=== PATIENT | female | born 2005 | race Caucasian/White ===

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

== ENCOUNTER 2025-03-31 07:44 | Emergency (ER) | payer OTHER, SELFPAY ==
--- OUTSIDE RECORDS SUMMARY | 2023-10-08 08:50 | XMS_ITS ---
Author Organization BILLING FACILITY [email or web address] [facility] Address [facility] [address] [place] [address] Care Team Providers Care Shipper Receiver Name Role Phone Rolanda Hyde Primary Care Provider Encounters Encounter Location Date Provider Diagnosis [address] [address] 10/08/2023 Rolanda Hyde PLAN OF TREATMENT No Information Progress Notes * Zaheer SALGUEROOB:2005 (18 yo F)Acc No.[id number]:10/08/2023 Patient: Hortencia SALGUERO :2005 Age:18 Y Sex:Female [facility] [place] [address] * true * Date:
--- OUTSIDE RECORDS SUMMARY | 2023-10-10 07:04 | XMS_ITS ---
Author Organization BILLING FACILITY [employer] [facility] Address PO [facility] [address] [place] [address] Care Team Providers Care Material Control Associate Name Role Phone Rolanda Hyde Primary Care Provider REASON FOR VISIT Referral F/U Encounters Encounter Location Date Provider Diagnosis [address] [address] 10/10/2023 Rolanda Hyde PLAN OF TREATMENT No Information Progress Notes * Zaheer SALGUEROOB:2005 (18 yo F)Acc No.[id number]:10/10/2023 Patient: Hortencia SALGUERO :2005 Age:18 Y Sex:Female Address:[facility] [address] , [place] [address] * true * Date:
--- OUTSIDE RECORDS SUMMARY | 2023-10-13 04:00 | XMS_ITS ---
Author Organization BILLING FACILITY [employer] [facility] Address [facility] [address] [place] [address] Care Team Providers Care Hearing Impaired Itinerant Teacher Name Role Phone Rolanda Hyde Primary Care Provider [phone] REASON FOR VISIT F/U abdominal pain, imaging Encounters Encounter Location Date Provider Diagnosis [facility] [address] [place] [phone] 10/13/2023 Rolanda Hyde PLAN OF TREATMENT No Information Progress Notes * Bhargav SALGUERONasOB:2005 (20 yo F)Acc No.[id number]:10/13/2023 Patient: Hortencia SALGUERO Provider: Rolanda Hyde APRN :2005 Age:18 Y Sex:Female Date:10/13/2023 [facility] Subjective: * Chief Complaints: * 1. F/U abdominal pain, imaging. * Medical History: Objective: Assessment: Plan: * Treatment: * Billing Information: * Visit Code: * Procedure Codes: * The named appointment provid er may or may not be the originator of this progress note, and it is not deemed complete until electronically signed by the appointment provider. Sign off status: Pending * Provider: Rolanda Hyde APRN Date: 10/13/2023
--- OUTSIDE RECORDS SUMMARY | 2023-10-13 09:00 | XMS_ITS ---
Author Organization BILLING FACILITY [employer] [facility] Address [facility] [address] [place] [address] Care Team Providers Care Tassel Clipper Name Role Phone Rolanda Hyde Primary Care Provider REASON FOR VISIT Other Encounters Encounter Location Date Provider Diagnosis [facility] [address] [place] [address] 10/13/2023 Rolanda Hyde PLAN OF TREATMENT No Information Progress Notes * Bhargav SALGUERONasOB:2005 (20 yo F)Acc No.[id number]:10/13/2023 Patient: Hortencia SALGUERO Provider: Rolanda Hyde APRN :2005 Age:18 Y Sex:Female Date:10/13/2023 Address:[facility] [address] , [facility] Subjective: * Chief Complaints: * 1. Other. * Medical History: Objective: Assessment: Plan: * [...]
--- OUTSIDE RECORDS SUMMARY | 2023-10-21 03:20 | XMS_ITS ---
Author Organization BILLING FACILITY [employer] Address [address] [facility] [address] [place] [address] Care Team Providers Care Customer Service Teller Name Role Phone Rolanda Hyde Primary Care Provider ALLERGIES Allergen (clinical drug ingredient) Drug/Non Drug Allergy documented on EMR Reaction Allergy Type Onset Date Status Omnicef rash Drug Allergy Active Penicillin rash Drug Allergy Active REASON FOR VISIT update, BSV - TELEPHONE ENCOUNTER MEDICATIONS Medication SIG (Take, Route, Frequency, Duration) Notes Start Date End Date Status Pantoprazole Sodium 20 MG 1 tablet Orall y daily in AM for 30 days Active VITAL SIGNS Height 61 in 10/21/2023 TELEPHONE ENCOUNTER Encounters Encounter Location Date Provider Diagnosis [address] [address] 10/21/2023 Rolanda Hyde Epigastric abdominal pain R10.13 and GERD (gastroesophageal reflux disease) K21.9 ASSESSMENTS Encounter Date Diagnosis Assessment Notes Treatment Notes Treatment Clinical Notes Section Notes 10/21/2023 Epigastric abdominal pain (ICD-10 - R10.13) Pt will keep GI appt as scheduled on 11/03/23 with Monik Gilbert NP. She DC'd Nexium as instructed and started Protonix. Pt is doing well w/Protonix with reportedly much improved ssx. Discussed P2P conclusion and advised her to complete labs. Pt will discuss labs with mother to determine when she can complete this before their vacation. Once labs are completed and reviewed she will take results to GI for further consideration on EGD vs imaging such as US or CT. Ordered RF Protonix, pt aware to fill at local pharmacy. Pt voiced understanding and agreement with POC as discussed. All questions and concerns were addressed to pt satisfaction. 10/21/2023 GERD (gastroesophage al reflux disease) (ICD-10 - K21.9) As above. PLAN OF TREATMENT Medication Medication Name Sig Start Date Stop Date Notes Pantoprazole Sodium 20 MG 1 tablet Orall y daily in AM for 30 days Next Appt Details Follow Up: prn, Reason: Progress Notes * Zaheer SALGUEROOB:2005 (18 yo F)Acc No.[id number]:10/21/2023 Patient: Hortencia SALGUERO Provider: Rolanda yHde APRN :2005 Age:18 Y Sex:Female Date:10/21/2023 Address:[address] [place] [address] Subjective: * Chief Complaints: * UpdateBSV - TELEPHONE ENCOUNTER * HPI: *: Pt presents via TELEPHONE ENCOUNTER for F/U abdominal pain. C all placed to pt at: 0915. C all ended at: 0923. Daina nance reports DC'd Nexium, started Protonix as Rx'd. S tates she is feeling much better with Protonix - hasn't noticed any reflux, heartburn, nausea, or vomiting since taking this med. Still does have abdominal pain, but it seems less often. Pt doesn't feel severity of abdominal pain has changed, though. She denies constipation, diarrhea, appetite change, fatigue, and fever. P goyo has scheduled with GI for 11/02 seeing Monik Gilbert NP. S he will be out of town 10/22-. T his encounter was undertaken via [telephone]. I introduced myself as SHELIA Michelle, and greeted the patient by name and then verified their location [home]. We reviewed the appropriateness of virtual care for this visit and the limitations of telemedicine. All issues below were discussed and addressed but no physical exam was performed except as documented. If it was felt the patient should be evaluated [id number], they were directed to the clinic for care either now or at a subsequent visit as indicated below. Verbal consent for telemedicine visit obtained from the patient. * ROS: General/Constitutional: General Denies:, chills, fatigue, fever, weight changes. Cardiovascular DENIES: , chest pain or tightness, irregular heartbeat, palpitations. Respiratory DENIES: , cough, shortness of breath, wheezing. Gastrointestinal REPORTS: PAIN IN UPPER MIDDLE AND UPPER LEFT ABD AREAS. SEE HPI FOR _update ON GERD, NAUSEA. DENIES: constipation, diarrhea, vomiting, bloating. Genitourinary DENIES: , dysuria, polyuria. Neurologic DENIES: , dizziness, headache, weakness. * Medical History: * Surgical History: * Hospitalization/Major Diagno stic Procedure: * Medications: TakingPantoprazole Sodium 20 MG Tablet Delayed Release 1 tablet Orally daily in AM Taking Pantoprazole Sodium 20 MG Tablet Delayed Release 1 tablet Orally daily in AM * Allergies: Penicillin: rash - Allergy - Criticality HighOmnicef: rash - Allergy - Criticality Highno[Allergies Verified] Objective: * Vitals: Ht:61in, Ht %: 10.09 % TELEPHONE ENCOUNTER. * Examination: General Examination *: TELEPHONE ENCOUNTER. Assessment: * Assessment: 1. Epigastric abdominal pain - R10.13 (Primary) 2. GERD (gastroesophageal reflux disease) - K21.9 Plan: * Treatment: 2. GERD (gastroesophageal reflux disease) Clinical Notes: As above. * Procedure Codes: * Follow Up: prn * Billing Information: * Visit Code: 69308 PHN E/M by PHYS 11-20 MIN. * Procedure Codes: * Sign off status: Completed true * Provider: Rolanda Hyde APRN Date: 10/21/2023 History and Physical Notes * Examination Category Sub-Category Detail Notes Category Not es General Examination * TELEPH ONE ENCOUNTER
--- OUTSIDE RECORDS SUMMARY | 2023-10-21 05:15 | XMS_ITS ---
Author Organization BILLING FACILITY [email or web address] [facility] Address [facility] [address] [place] [address] Care Team Providers Care Test Design Engineer Name Role Phone Rolanda Hyde Primary Care Provider RESULTS Component Value Reference Range Notes Hepatic Function Panel (7) ( LFTs) (516271) Reviewed date:10/23/2023 07:38:49 AM Interpretation:Normal Performing Lab:[facility] [id number], Phone - [phone], Director - PhDNashoba Valley Medical Centerclemenciai Notes/Report: Protein, Total 7.5 6.0-8.5 g/dL Albumin 4.9 4.0-5.0 g/dL Bilirubin, Total 0.7 0.0-1.2 mg/dL Bilirubin, Direct 0.19 0.00-0.40 mg/dL Alkaline Phosphatase 62 42-106 IU/L AST (SGOT) 22 0-40 IU/L ALT (SGPT) 24 0-32 IU/L Lipase, Serum ([id number]) Reviewed date:10/23/2023 07:38:49 AM Interpretation:Normal Performing Lab:[facility] [id number], Phone - [phone], Director - PhDRicbluegrass community hospitaluti Notes/Report: Lipase 23 14-72 U/L Amylase, Serum([id number]) Reviewed date:10/23/2023 07:38:49 AM Interpretation:Normal Performing Lab:Lab[address] [id number], Phone - [phone], Director - PhDRicbluegrass community hospitaluti Notes/Report: Amylase 52 31-110 U/L UA Urinalysis w/Microscopic w/rflx Culture, Routine (up to 2 organisms) ([id number]) Reviewed date:10/23/2023 07:38:49 AM Interpretation:Normal Performing Lab:[facility], [place], [place] [id number], Phone - [phone], Director - [place] Notes/Report: Specific [place] 1.017 1.005-1.030 pH 6.5 5.0-7.5 Urine-Color Yellow Yellow Appearance Clear Clear WBC Esterase Negative Negative Protein Negative Negative/Trace Glucose Negative Negative Ketones Negative Negative Occult Blood Negative Negative Bilirubin Negative Negative Urobilinogen,Semi-Qn 0.2 0.2-1.0 mg/dL Nitrite, Urine Negative Negative Microscopic Examination Micr oscopic follows if indicated. Microscopic Examination See below: Micr oscopic was indicated and was performed. Urinalysis Reflex This speci men will not reflex to a Urine Culture. WBC None seen 0 - 5 /hpf RBC None seen 0 - 2 /hpf Epithelial Cells (non renal) 0-10 0 - 10 /hpf Epithelial Cells (renal) Casts None seen None seen /lpf Cast Type Crystals Crystal Type Mucus Threads Bacteria None seen None seen/Few Yeast Trichomonas Comment Basic Metabolic Profile (8) ([facility])([id number]) Reviewed date:10/23/2023 07:38:50 AM Interpretation:Normal Performing Lab:[facility], [address] [place], [place] [id number], Phone - [phone], Director - [place] Notes/Report: Glucose 83 70-99 mg/dL BUN 11 6-20 mg/dL Creatinine 0.83 0.57-1.00 mg/dL eGFR 105 >59 mL/min/1.73 BUN/Creatinine Ratio 13 9-23 Sodium 140 134-144 mmol/L Potassium 4.1 3.5-5.2 mmol/L Chloride 102 96-106 mmol/L Carbon Dioxide, Total 22 20-29 mmol/L Calcium 10.2 8.7-10.2 mg/dL REASON FOR VISIT New labs, Lab draw MEDICATIONS Medication SIG (Take, Route, Frequency, Duration) Notes Start Date End Date Status Pantoprazole Sodium 20 MG 1 tablet Orall y daily in AM for 30 days Active Encounters Encounter Location Date Provider Diagnosis [address] [address] 10/21/2023 Rolanda Hyde Epigastric abdominal pain R10.13 and Laboratory test Z01.89 ASSESSMENTS Encounter Date Diagnosis Assessment Notes Treatment Notes Treatment Clinical Notes Section Notes 10/21/2023 Epigastric abdominal pain (ICD-10 - R10.13) 10/21/2023 Laboratory test (ICD-10 - Z01.89) PLAN OF TREATMENT No Information Procedure Notes * Category Sub-Category Detail Notes Venipuncture Venipuncture: Procedure Explai haile, Standard Precautions Used, verbal consent obtained, Pt Position, sitting, 21 g butterfly, LT AC Space, # of Attempts 1, , Successful, No Redness/Swelling at Site, Pt Tolerated Well, Pressure and Clean Bandage Applied. BVoyda, DIE FINISHER FORGING-C1SST; 1 LAV; 2 Murrell top, 1 Goss Speckled, 1 urine cup Progress Notes * Bhargav SALGUEROwandynDOB:2005 (18 yo F)Acc No.[id number]:10/21/2023 Patient: Hortencia SALGUERO Provider: Rolanda Hyde APRN :2005 Age:18 Y Sex:Female Date:10/21/2023 Address:[address] [place] [address] Subjective: * Chief Complaints: * New labsLab draw * Medical History: * Surgical History: * Hospitalization/Major Diagno stic Procedure: * Medications: TakingPantoprazole Sodium 20 MG Tablet Delayed Release 1 tablet Orally daily in AM Taking Pantoprazole Sodium 20 MG Tablet Delayed Release 1 tablet Orally daily in AM Objective: Assessment: * Assessment: 1. Laboratory test - Z01.89 (Primary) 2. Epigastric abdominal pain - R10.13 Plan: * Treatment: Value Reference Range Albumin, Serum 4.9 4.0-5.0 - g/dL * Alkaline Phosphatase, S 62 42-106 - IU/L * ALT (SGPT) 24 0-32 - IU/L * AST (SGOT) 22 0-40 - IU/L * Bilirubin, Direct 0.19 0.00-0.40 - mg/dL * Bilirubin, Total 0.7 0.0-1.2 - mg/dL * Protein, Total, Serum 7.5 6.0-8.5 - g/dL * This lab was reviewed by Teresita Hyde on 10/23/2023 at 07:38 AM MDT ?LAB: Lipase, Serum ([id number])* Value Reference Range Lipase, Serum 23 14-72 - U/L * This lab was reviewed by Teresita Hyde on 10/23/2023 at 07:38 AM T ?LAB: Amylase, Serum([id number])* Value Reference Range Amylase, Serum 52 31-110 - U/L * This lab was reviewed by Teresita Hyde on 10/23/2023 at 07:38 AM MDT ?LAB: UA Urinalysis w/Microscopic w/rflx Culture, Routine (up to 2 organisms) ([id number])* Value Reference Range Bacteria None seen None seen/Few - * Casts None seen None seen - /lpf * Epithelial Cells (non renal) 0-10 0 - 10 - /h pf * RBC None seen 0 - 2 - /hpf * WBC None seen 0 - 5 - /hpf * Appearance Clear Clear - * Bilirubin Negative Negative - * Glucose Negative Negative - * Ketones Negative Negative - * Microscopic Examination See below: - * Nitrite, Urine Negative Negative - * Occult Blood Negative Negative - * pH 6.5 5.0-7.5 - * Protein Negative Negative/Trace - * Specific [place] 1.017 1.005-1.030 - * Urine-Color Yellow Yellow - * Urobilinogen,Semi-Qn 0.2 0.2-1.0 - mg/dL * WBC Esterase Negative Negative - * This lab was reviewed by Teresita Hyde on 10/23/2023 at 07:38 AM T ?LAB: Basic Metabolic Profile (8) ([facility])([id number])* Value Reference Range Glucose, Serum 83 70-99 - mg/dL * BUN 11 6-20 - mg/dL * Creatinine, Serum 0.83 0.57-1.00 - mg/dL * BUN/Creatinine Ratio 13 9-23 - * Sodium, Serum 140 134-144 - mmol/L * Potassium, Serum 4.1 3.5-5.2 - mmol/L * Chloride, Serum 102 96-106 - mmol/L * Carbon Dioxide, Total 22 20-29 - mmol/L * Calcium, Serum 10.2 8.7-10.2 - mg/dL * eGFR 105 >59 - mL/min/1.73 * This lab was reviewed by Teresita Hyde on 10/23/2023 at 07:38 AM MDT * Procedures: Venipuncture: Venipuncture: Procedure Explained, Standard Precautions Used, verbal consent obtained, Pt Position, sitting, 21 g butterfly, LT AC Space, # of Attempts 1, , Successful, No Redness/Swelling at Site, Pt Tolerated Well, Pressure and Clean Bandage Applied. BVWARREN larson 1SST; 1 LAV; 2 Murrell top, 1 Goss Speckled, 1 urine cup. * Procedure Codes: 30142 VENIPUNCT, ROUTINE* * Billing Information: * Visit Code: * Procedure Codes: 14390 VENIPUNCT, ROUTINE*. * NN Sign off status: Completed true * Provider: Rolanda Hyde APRN Date: 10/21/2023
--- OUTSIDE RECORDS SUMMARY | 2023-11-25 03:51 | XMS_ITS ---
Author Organization BILLING FACILITY [employer] [facility] Address PO [facility] [address] [place] [address] Care Team Providers Care Holistic Specialist Name Role Phone Rolanda Hyde Primary Care Provider REASON FOR VISIT PRTL: Chest pain Encounters Encounter Location Date Provider Diagnosis [address] [address] 11/25/2023 Rolanda Hyde PLAN OF TREATMENT No Information Progress Notes * Bhargav SALGUERONasOB:2005 (18 yo F)Acc No.[id number]:11/25/2023 Patient: Hortencia SALGUERO :2005 Age:18 Y Sex:Female Address:[facility] [place] [id number] Subjective: * Chief Complaints: * PRTL: Chest pain * Medical History: * Surgical History: * Hospitalization/Major Diagno stic Procedure: * Medications: Objective: Assessment: Plan: * Treatment: * Procedure Codes: * true * Date:
--- OUTSIDE RECORDS SUMMARY | 2023-11-25 04:30 | XMS_ITS ---
Author Organization BILLING FACILITY [employer] Address PO [facility] [address] [place] [address] Care Team Providers Care Pharmacist Apprentice Name Role Phone Rolanda Hyde Primary Care Provider ALLERGIES Allergen (clinical drug ingredient) Drug/Non Drug Allergy documented on EMR Reaction Allergy Type Onset Date Status Omnicef rash Drug Allergy Active Penicillin rash Drug Allergy Active REASON FOR VISIT F/U GI pain, f/u EGD results MEDICATIONS Medication SIG (Take, Route, Frequency, Duration) Notes Start Date End Date Status Pantoprazole Sodium 20 MG 1 tablet Orall y daily in AM for 90 days Active VITAL SIGNS Height 61 in 11/25/2023 TELEPHONE ENCOUNTER Encounters Encounter Location Date Provider Diagnosis [address] [address] 11/25/2023 Rolanda Rabagovaleryjoshua Epigastric abdominal pain R10.13 and GERD (gastroesophageal reflux disease) K21.9 ASSESSMENTS Encounter Date Diagnosis Assessment Notes Treatment Notes Treatment Clinical Notes Section Notes 11/25/2023 Epigastric abdominal pain (ICD-10 - R10.13) Describes continued pain triggered especially with core exercises. She specifically avoids that muscle group when working out near daily at the gym as it will cause significant pain the remainder of the day. Encouraged pt to contact her GI to relay above and discuss next steps in workup given persistent pain and WNL EGD. She has their contact information. Pt verbalized understanding and agreement with POC. She will keep us updated. 11/25/2023 GERD (gastroesophage al reflux disease) (ICD-10 - K21.9) Pt reports ssx reflux well controlled w/protonix. She has about 1 week of pills left, RF ordered. PLAN OF TREATMENT Medication Medication Name Sig Start Date Stop Date Notes Pantoprazole Sodium 20 MG 1 tablet Orall y daily in AM for 90 days Progress Notes * Zaheer SALGUEROOB:2005 (18 yo F)Acc No.[id number]:11/25/2023 Patient: Hortencia SALGUERO Provider: Rolanda Hyde APRN :2005 Age:18 Y Sex:Female Date:11/25/2023 Address:[address] [place] [address] Subjective: * Chief Complaints: * F/U GI pain, f/u EGD results * HPI: *: Pt presents via TELEPHONE ENCOUNTER for F/U abdominal pain. C all placed to pt at: 10:30. C all ended at: 10:39. E GD COMPLETED - WNL. N o f/u appts with GI. N o change w/food amount or types. B loated a lot, denies fever, constipation, diarrhea. P ain worse w/exercise, especially core work. C ontinues Protonix, acid reflux still under control. T his encounter was undertaken via [telephone]. [...] was felt the patient should be evaluated [id number], they were directed to the clinic for [...] UPPER MIDDLE AND UPPER LEFT ABD AREAS. FREQUENT BLOATING. SEE HPI. DENIES: constipation, diarrhea, vomiting. Genitourinary DENIES: , dysuria, polyuria. Neurologic DENIES: [...] Criticality HighOmnicef: rash - Allergy - Criticality High Objective: * Vitals: Ht:61in, Ht %: 10.07 % TELEPHONE ENCOUNTER. * Examination: General Examination *: TELEPHONE ENCOUNTER. Assessment: * Assessment: 1. Epigastric abdominal pain - R10.13 (Primary) 2. GERD (gastroesophageal reflux disease) - K21.9 Plan: * Treatment: 2. GERD (gastroesophageal reflux disease) Refill Pantoprazole Sodium Tablet Delayed Release, 20 MG, 1 tablet, Orally, daily in AM, 90 days, 90 Tablet, Refills 0. Clinical Notes: Pt reports ssx reflux well controlled w/protonix. She has about 1 week of pills left, RF ordered. * Procedure Codes: * Billing Information: * Visit Code: 33650 PHN E/M by PHYS 11-20 MIN. * Procedure Codes: * Sign off status: Completed true * Provider: Rolanda Hyde APRN Date: 11/25/2023 History and Physical Notes * Examination Category Sub-Category Detail Notes Category Not es General Examination * TELEPH ONE ENCOUNTER
--- OUTSIDE RECORDS SUMMARY | 2024-02-23 04:00 | XMS_ITS ---
Author Organization [facility] [employer] [facility] Address [address] [place] [address] Care Team Providers Care Entry Level Programmer Name Role Phone Rolanda Hyde Primary Care Provider [phone] ALLERGIES Allergen (clinical drug ingredient) Drug/Non Drug Allergy documented on EMR Reaction Allergy Type Onset Date Status Omnicef rash Drug Allergy Active Penicillin rash Drug Allergy Active REASON FOR REFERRAL Reason left renal stones Diagnosis 1 Renal stone (N20.0) Referral Organization [facility] Referring Provider First Name Rolanda Referring Provider Last Name Mary Ellen Referring Provider Speciality Family Med icine Referred Provider Moises [facility] Nep [facility] Referred Provider Specialty Nephrology Referral Priority Routine REASON FOR VISIT CPE, labs, kidney stones MEDICATIONS Medication SIG (Take, Route, Frequency, Duration) Notes Start Date End Date Status Pantoprazole Sodium 20 MG 1 tablet Orally daily in AM for 90 days Active Nexplanon 68 MG as directed Subcutaneous PAINTER APPRENTICE Dr. Adriana Nathan Active SOCIAL HISTORY Tobacco Use: Social History Observation Description Date Details (start date - stop date) Never Smoker NA - NA Sex Assigned At : Social History Observation Description Sex Assigned At Unknown Tobacco Use/Smoking Question Answer Notes Are you a nonuser Alcohol Questionnaire Question Answer Notes Did you have a drink contain ing alcohol in the past year? Yes How often did you have a dri nk containing alcohol in the past year? Monthly or less (1 point) How many drinks did you have on a typical day when you were drinking in the past year? 3 or 4 drinks (1 point) How often did you have 6 or more drinks on one occasion in the past year? Never (0 point) Points 2 Interpretation Negative PROBLEMS Problem Type ICD Code Onset Dates Problem Status W/U Status Risk SNOMED Code Notes Problem Childhood asthma (J45.909) Active confirmed Childhood asthma (891856392) VITAL SIGNS Temperature 99.7 degrees Fahrenheit 02/23/20 Heart Rate 90 /min 02/23/2024 Oximetry 99 % 02/23/2024 Blood pressure systolic 118 mm Hg 02/23/20 24 Blood pressure diastolic 68 mm Hg 024 Respiratory Rate 16 /min 02/23/2024 Weight 120.3 lbs 02/23/2024 Height 61 in 02/23/2024 BMI 22.73 02/23/2024 Weight-kg 54.57 kg 02/23/2024 BMI Percentile 63.29 % 02/23/2024 Encounters Encounter Location Date Provider Diagnosis [address] [address] 02/23/2024 Rolanda Hyde Encounter for genera l adult medical examination with abnormal findings Z00.01 ; Renal stone N20.0 and Anxiety F41.9 ASSESSMENTS Encounter Date Diagnosis Assessment Notes Treatment Notes Treatment Clinical Notes Section Notes 02/23/2024 Encounter for general adult medical examination with abnormal findings (ICD-10 - Z00.01) Labs: Reviewed available results from 10/2023 visit and discussed screening for HLD and thyroid conditions. Pt declines testing today, but is aware she can call to schedule if she opts back into this. Vaccines: Declines flu vaccine. Reports UTD tdap. Encouraged good sleep hygiene for good sleep quality, daily exercise, good nutrition, healthy relationships, etc. 02/23/2024 Renal stone (ICD-10 - N20.0) Reviewed CT imaging results with pt, recommend she see nephrology as she was found to have left renal stones and is still symptomatic. Discussed UTI ssx and concerns for infection. She is agreeable to referral as discussed. Pt will call for any change in condition or need for additional care. 02/23/2024 Anxiety (ICD-10 - F41.9) KYLIE 12, moderate. Pt taking ashwagandha OTC QAM to help reduce anxiety, sometimes also at bedtime if she feels stress will disrupt her sleep. Encouraged sleep hygiene for good sleep quality, daily exercise, good nutrition, healthy relationships, etc. Discussed [facility] therapy, however she declines interest in referral or pharmocologic treatment at this time. Pt will call for change in consideration or change in condition. Pt voiced understanding and agreement with POC as discussed. All questions and concerns were addressed to pt satisfaction. PLAN OF TREATMENT Referrals Referral Date Details left renal jesse , Moises [facility] Nephrology Progress Notes * Zaheer SALGUEROOB:2005 (19 yo F)Acc No.[id number]:02/23/2024 Patient: Hortencia SALGUERO Provider: Rolanda Hyde APRN :2005 Age:19 Y Sex:Female Date:02/23/2024 Address:[address] [place] [address] Subjective: * Chief Complaints: * CPE, labs, kidney stones * HPI: Depression/Anxiety Screening: PHQ-9 (If PHQ-2 positive) Little interest or pleasure in doing things Not at all Feeling down, depressed, or hopeless Not at all Trouble falling or staying asleep, or sleeping too much Several days Feeling tired or having little energy Several days Poor appetite or overeating Several days Feeling bad about yourself or that you are a failure, or have let yourself or your family down Not at all Trouble concentrating on things, such as reading the newspaper or watching television Several days Moving or speaking so slowly that other people could have noticed; or the opposite, being so fidgety or restless that you have been moving around a lot more than usual Not at all Thoughts that you would be better off or of hurting yourself in some way Not at all Total Score 4 Interpretation Minimal Depression Depression Screening: KYLIE-7 (2018 Edition) Feeling nervous, anxious, or on edge Nearly every day Not being able to stop or control worrying Nearly every day Worrying too much about different things Nearly every day Trouble relaxing Several days Being so restless that it is hard to sit still Not at all Becoming easily annoyed or irritable Several days Feeling afraid as if something awful might happen Several days Total KYLIE-7 Score 12 If you checked any problems, how difficult have they made it for you to do your work, take care of things at home, or get along with other people? Somewhat difficult Interpretation of Total (10 to 14) Moderate *: Pt presents with boyfriend for CPE and with c/o kidney stones. P t verbalizes she is comfortable with boyfriend's presence during all of today's visit. S aw GI, had imaging done which showed non-obstructing kidney stones. P t reports they attribute GI pain to these renal stones. * ROS: General/Constitutional: General Denies:, chills, fatigue, fever, weight changes. Eyes Denies:, blurred vision. ENT DENIES: , ear(s) pain, hearing decreased, nose congestion/drainage. Cardiovascular DENIES: , chest pain or tightness, irregular heartbeat, palpitations. Respiratory DENIES: , cough, shortness of breath, wheezing. Gastrointestinal REPORTS: PAIN IN UPPER MIDDLE AND UPPER LEFT ABD AREAS. FREQUENT BLOATING. DENIES: constipation, diarrhea, vomiting. Genitourinary REPORTS: LEFT BACK PAIN. DENIES: , dysuria, polyuria. Skin DENIES: , concerning/changing lesions, itching, rash. Musculoskeletal DENIES: , back pain, muscle aches. Peripheral Vascular DENIES: , claudication, varicose veins. Neurologic DENIES: , dizziness, headache, weakness. Psychiatric DENIES:, anxiety, depressed mood, sleep problems, substance abuse, suicidal thoughts. Endocrine DENIES: , cold intolerance, heat intolerance, polydipsia. Hematology DENIES: , bleeding prolonged, bruising easily, glands swollen. * Medical History: * Qc Chemist History: Periods : Irregular cycle; last one started on 12/27/2023 through 01/09/2024. Date of Last Period 12/27/23. control Implanon (Nexplanon). Menarche: Age of onset of maternal menarche: 13 * OB History: Total pregnancies 0. * Surgical History: No Surgical History documented. * Hospitalization/Major Diagno stic Procedure: GERD management 2010 * Family History: Father: alive. Mother: alive. Maternal G M: alive, Heart Disease. 1 brother(s) - healthy. . Adopted sister. * Social History: Tobacco Use: Tobacco Use/Smoking Are you a nonuser Habits (drugs/alcohol/caffeine): Alcohol Questionnaire Did you have a drink containing alcohol in the past year? Yes How often did you have a drink containing alcohol in the past year? Monthly or less (1 point) How many drinks did you have on a typical day when you were drinking in the past year? 3 or 4 drinks (1 point) How often did you have 6 or more drinks on one occasion in the past year? Never (0 point) Points 2 Interpretation Negative * Medications: TakingNexplanon 68 MG Implant as directed Subcutaneous Pantoprazole Sodium 20 MG Tablet Delayed Release 1 tablet Orally daily in AM Medication List reviewed and reconciled with the patientTaking Nexplanon 68 MG Implant as directed Subcutaneous Taking Pantoprazole Sodium 20 MG Tablet Delayed Release 1 tablet Orally daily in AM Medication List reviewed and reconciled with the patient * Allergies: Penicillin: rash - Allergy - Criticality HighOmnicef: rash - Allergy - Criticality Highno[Allergies Verified] Objective: * Vitals: Temp:99.7F, HR:90, Oxygen sat:99%, BP:118/68mm Hg, RR:16/min, Wt:120.3lbs, Wt Ch.9 lbs, Wt Chg %: 6.08%, Wt %: 37.72 %, Ht:61in, BMI:22.73, Wt-k.57 kg, BMI %: 63.29 %, Ht %: 10 %. * Examination: General Examination *: GENERAL APPEARANCE: alert and oriented, no acute distress, pleasant, well nourished. HEAD: atraumatic, normocephalic. EYES: conjunctiva clear, sclera non-icteric. EARS: auditory canal clear, light reflex present, tympanic membrane intact. SINUSES: non-tender. NOSE: nares patent, no lesions . ORAL CAVITY: no lesions, mucosa moist, normal dentition. THROAT: no erythema, no exudate, pharynx normal, tonsils normal, uvula midline . NECK/THYROID: neck supple, no thyromegaly. LYMPH NODES: no anterior cervical adenopathy. HEART: S1/S2 normal, regular rate and rhythm, no murmurs, no rubs, no gallops. LUNGS: clear to auscultation, good air movement, no respiratory distress. CHEST: anteroposterior (AP) diameter normal, no deformity. ABDOMEN: TTP ACROSS UPPER ABDOMINAL AREA, soft, normal bowel sounds, non-distended, no evidence of hernias. BACK: + COSTOVERTEBRAN ANGLE TENDERNESS TO LEFT, otherwise non-tender, full range of motion. SKIN: Warm and dry, good turgor, no rashes, no suspicious lesions. EXTREMITIES: no edema, capillary refill normal. PERIPHERAL PULSES: 2+ throughout. NEUROLOGIC: alert, cooperative, moving all extremities spontaneously, non-focal, no difficulty with ambulation, CN II-XII intact. Strength 5/5 proximally and distally BUE and BLE. DTRs 2+ at bilateral biceps, brachioradialis, knees and ankles. Normal rapidly alternating movements. Normal finger to nose. Normal tandem gait, Negative Romberg.. MUSCULOSKELETAL: no swelling or deformity. PSYCH: affect normal, cognitive function intact, mood normal, *SPEECH/LANGUAGE, clear. Assessment: * Assessment: 1. Encounter for general adult medical examination with abnormal findings - Z00.01 (Primary) 2. Renal stone - N20.0 3. Anxiety - F41.9 Plan: * Treatment: 2. Renal stone Clinical Notes: Reviewed CT imaging results with pt, recommend she see nephrology as she was found to have left renal stones and is still symptomatic. Discussed UTI ssx and concerns for infection. She is agreeable to referral as discussed. Pt will call for any change in condition or need for additional care. Referral To:Nephrology Reason:left renal stones 3. Anxiety Clinical Notes: KYLIE 12, moderate. Pt taking ashwagandha OTC QAM to help reduce anxiety, sometimes also at bedtime if she feels stress will disrupt her sleep. Encouraged sleep hygiene for good sleep quality, daily exercise, good nutrition, healthy relationships, etc. Discussed [facility] therapy, however she declines interest in referral or pharmocologic treatment at this time. Pt will call for change in consideration or change in condition. Pt voiced understanding and agreement with POC as discussed. All questions and concerns were addressed to pt satisfaction. * Procedure Codes: * Billing Information: * Visit Code: * Procedure Codes: * Sign off status: Completed true * Provider: Rolanda Hyde APRN Date: 02/23/2024 History and Physical Notes * HPI (History of Present Illness) Category Sub-Category Detail Notes Category Not es Depression/Anxiety Screening PHQ-9 (If PHQ-2 positive) Little interest or pleasure in doing things: Not at all Feeling down, depressed, or hopeless: No t at all Trouble falling or staying asleep, or sl eeping too much: Several days Feeling tired or having little energy: S everal days Poor appetite or overeating: Several day s Feeling bad about yourself o r that you are a failure, or have let yourself or your family down: Not at all Trouble concentrating on thi ngs, such as reading the newspaper or watching television: Several days Moving or speaking so slowly that other people could have noticed; or the opposite, being so fidgety or restless that you have been moving around a lot more than usual: Not at all Thoughts that you would be b supa off or of hurting yourself in some way: Not at all Total Score: 4 Interpretation: Minimal Depression Depression Screening KYLIE-7 (2018 Edition) Feelin g nervous, anxious, or on edge: Nearly every day Not being able to stop or control worryi ng: Nearly every day Worrying too much about different things : Nearly every day Trouble relaxing: Several days Being so restless that it is hard to sit still: Not at all Becoming easily annoyed or irritable: Se veral days Feeling afraid as if something awful david ht happen: Several days Total KYLIE-7 Score: 12 If you checked any problems, how difficult have they made it for you to do your work, take care of things at home, or get along with other people?: Somewhat difficult Interpretation of Total: (10 to 14) Mode rate Examination Category Sub-Category Detail Notes Category Not es General Examination * GENERAL APPEARANCE: alert and oriented, no acute distress, pleasant, well nourished HEAD: atraumatic, normocep halic EYES: conjunctiva clear, s clera non-icteric EARS: auditory canal clear , light reflex present, tympanic membrane intact NOSE: nares patent, no les ions ORAL CAVITY: no lesions, mucosa m oist, normal dentition THROAT: no erythema, no exud ate, pharynx normal, tonsils normal, uvula midline NECK/THYROID: neck supple, no thyr omegaly LYMPH NODES: no anterior cervical adenopathy SKIN: Warm and dry, good t urgor, no rashes, no suspicious lesions HEART: S1/S2 normal, regula r rate and rhythm, no murmurs, no rubs, no gallops LUNGS: clear to auscultatio n, good air movement, no respiratory distress CHEST: anteroposterior (AP) diameter normal, no deformity ABDOMEN: TTP ACROSS UPPER ABD OMINAL AREA, soft, normal bowel sounds, non- distended, no evidence of hernias BACK: + COSTOVERTEBRAN ANG LE TENDERNESS TO LEFT, otherwise non-tender, full range of motion MUSCULOSKELETAL: no swelling or defor mity EXTREMITIES: no edema, capillary refill normal PERIPHERAL PULSES: 2+ throughout NEUROLOGIC: alert, cooperative, moving all extremities spontaneously, non-focal, no difficulty with ambulation, CN II-XII intact. Strength 5/5 proximally and distally BUE and BLE. DTRs 2+ at bilateral biceps, brachioradialis, knees and ankles. Normal rapidly alternating movements. Normal finger to nose. Normal tandem gait, Negative Romberg. PSYCH: affect normal, cogni tive function intact, mood normal, *SPEECH/LANGUAGE, clear SINUSES: non-tender Consultation Request Notes Referral Date Referring Provider Referred Provider Not es 02/23/2024 Rolanda [facility], left renal stones
--- OUTSIDE RECORDS SUMMARY | 2024-03-16 09:21 | XMS_ITS ---
Author Organization [facility] [employer] [facility] Address [address] [facility] [address] [place] [address] Care Team Providers Care Telegraphic Typewriter Mechanic Name Role Phone Rolanda Hyde Primary Care Provider [phone] REASON FOR VISIT PRTL: Anxiety Medication Encounters Encounter Location Date Provider Diagnosis [address] [address] 03/16/2024 Rolanda Hyde PLAN OF TREATMENT No Information Progress Notes * Bhargav SALGUERONasOB:2005 (19 yo F)Acc No.[id number]:03/16/2024 Patient: Hortencia SALGUERO :2005 Age:19 Y Sex:Female [place]:[facility] [place] [address] Subjective: * Chief Complaints: * PRTL: Anxiety Medication * Medical History: * Surgical History: * Hospitalization/Major Diagno stic Procedure: * Medications: Objective: Assessment: Plan: * Treatment: * Procedure Codes: * true * Date:
--- OUTSIDE RECORDS SUMMARY | 2025-03-31 07:46 | XMS_ITS | Continuity of Care Document ---
Author Organization [facility] [place] Address [address] [place] [place] [address] Care Team Providers Care Kitchen Utility Associate Name Role Phone JAY MARKOSTARAN Primary Care Provider [phone] Assessment No assessment recorded. Plan of Treatment Reminders Order Date Submit Date Provider Last Modified By Organization Details Last Modified Time Details Appointments MED CHECK 025 10:30AM AYESHA VILLARREAL MD Not available Not available Not available Lab None recorde d. Referral None recorde d. Procedures None recorde d. Surgeries None recorde d. Imaging None recorde d. Medication Orders None recorde d. Patient TargetsNo targets recorded. Patient InstructionsNo instructions recorded. Reason for Referral None Reported. Procedures Surgical History Date Name Laterality Status Provider Name and Address Organization Details Recorded Time 5 IUD Insertion completed AYESHA VILLARREAL MD [address], [place], [address], [facility] 03/29/2025 17:07:18 5 Nexplanon Removal completed ANGELINA CAIN NP [address], [place], [address], [facility] 01/06/2025 12:19:58 3 Control Implant Insertion completed Kaitlin Nathan JOSUE- [address], [place], [address], [facility] 09/14/2022 11:55:01 Imaging Results None recorded. Procedure Notes None recorded. Medical Equipment None Reported. Allergies Allergen ID Allergen Name Allergen Category Reaction Reaction Severity Criticality Documentation Date Start Date Code Code System Note Provider Name and Address Organization Details Recorded Time Omnicef medicatio n rash Not available Not available 09/14/2022 11443 RxNorm Kyara guidry, [facility] 3 10:06:40 Product containin g penicilli n (product) medicatio n Not available Not available Not available 09/14/2022 46425 8001 SNOMED Kyara guidry, [facility] 3 10:06:54 Medications Name Sig Start Date Stop Date Status Note LastModified by Organization Details LastModified Time pantopraz ole 20 mg tablet,de layed release TAKE 1 TABLET BY MOUTH TWICE DAILY active Not Available Not Available No t Available erythromy re 5 mg/gram (0.5 %) eye ointment APPLY SMALL AMOUNT IN RIGHT EYE AT BEDTIME FOR 1 WEEK 01/06 completed Not Available Not Available Not Available polymyxin B sulfate 10,000 unit-trim ethoprim 1 mg/mL eye drops INSTILL 1 DROP IN RIGHT EYE THREE TIMES DAILY FOR 1 WEEK 01/06 completed Not Available Not Available Not Available escitalop brian 5 mg tablet TAKE 1 TABLET BY MOUTH EVERY DAY AT BEDTIME FOR ANXIETY OR DEPRESSI ON active Not Available Not Available No t Available Nexplanon 68 mg subdermal implant Inject 1 implant by subcutan eous route. 03/24 completed nexplano n inserted 3 and needs removed by 6 Not Available Not Available Not Available Kyleena 17.5 mcg/24 hr (up to 5 years) 19.5 mg intrauter ine device Take 1 device by intraute rine route. 2024 active Not Available Not Available Not Avai lable Vitals Date Recorded Body height Body mass index (BMI) Body mass index (BMI) [Percentile] Per age and sex Body weight Systolic And Diastolic Provider Name and Address Organization Details Last Updated DateTime 01/06/2025 152.4 cm 26.7 kg/m2 86 % 09516.4 4 g 127/82 mm[Hg] Emily Moe [facility] 12:03:20 Social History Question Answer Notes LastModified by Organizat ion Details LastModified Time Tobacco Smoking Status Never Smoker Kyara guidry, [facility] 09/14/2022 10:08:38 If You Are , What Was Your Level Of Alcohol Consumption Prior To ? None Information not available 09/14/2022 Are You Blind Or Do You Have Difficulty Seeing? No [email or web address] Information n ot available 09/14/2022 What Is Your Level Of Caffeine Consumption? Heavy [email or web address] Information not available 09/14/2022 How Much Tobacco Do You Chew? None [email or web address] Information not available 09/14/2022 In The 14 Days Before Symptom Onset, Have You Had Close Contact With A Laboratory-confirm ed COVID-19 While That Case Was Ill? No [email or web address] Information n ot available 09/14/2022 In The 14 Days Before Symptom Onset, Have You Had Close Contact With A Person Who Is Under Investigation For COVID-19 While That Person Was Ill? No [email or web address] Information not available 09/14/2022 Have You Been To An Area Known To Be High Risk For COVID-19? No [email or web address] Information not available 09/14/2022 Are You Deaf Or Do You Have Serious Difficulty Hearing? No [email or web address] Information not available 09/14/2022 What Type Of Diet Are You Following? REGULAR hryqfrjn34 Information n ot available 09/14/2022 What Is The Highest Grade Or Level Of School You Have Completed Or The Highest Degree You Have Received? [id number] [email or web address] Information not available 01/06/2025 Are There Any Guns Present In Your Home? No [email or web address] Information not available 09/14/2022 Do You Use Protection During Sex? Usually [email or web address] Information not available 01/06/2025 Do You Use Your Seat Belt Or Car Seat Routinely? Yes yxhzhead21 Information not available 09/14/2022 Do You Have Smoke And Carbon Monoxide Detectors In Your Home? Yes [email or web address] Information not available 09/14/2022 How Much Tobacco Do You Smoke? No psfvrube38 Information not available 09/14/2022 Do You Use Sunscreen Routinely? Yes Information not available 09/14/2022 Has Tobacco Cessation Counseling Been Provided? No [email or web address] Information not available 09/14/2022 Have You Used IV Drugs? No [email or web address] Information not available 09/14/2022 Do You Have Difficulty Walking Or Climbing Stairs? No [email or web address] Information not available 09/14/2022 Sex: Unknown Functional Status Question Answer Note LastModified by Organizat ion Details LastModified Time Do you use any illicit or recreational drugs? No [email or web address] Information not available 09/14/2022 Do you or have you ever used any other forms of tobacco or nicotine? No Information not available 09/14/2022 What is your level of alcohol consumption? None [email or web address] Information not available 09/14/2022 Are you able to walk independently without assistance or assistive devices? YESWOREST [email or web address] Information not available 09/14/2022 Are you able to care for yourself independently? Yes ykivlfvq81 Information not available 09/14/2022 Do you have difficulty dressing, bathing, grooming, or toileting? No [email or web address] Information not available 09/14/2022 What is your exercise level? Moderate jwotmmqs79 Information not available 09/14/2022 Mental Status Question Answer Note LastModified by Organization D etails LastModified Time Do you feel stressed (tense, restless, nervous, or anxious, or unable to sleep at night)? [id number] [email or web address] Information not available 09/14/2022 Family History Relationship Description Onset Age of this Age Resolved Age Notes LastModified by Organization Details LastModified Time Mother Pre-eclampsi a [email or web address] Not available 09/14 10:06:40 Mother Heart disease Not available 09/14 10:06:40 Paternal Grandfather Heart disease [email or web address] Not available 09/14 10:06:40 Medical History Condition Response Allergies (Food, seasonal, environmental ) Y Other N Breast Cancer N Drug/Latex Allergies/Reactions N Blood Transfusion N Lung Disease N Dermatologic Disorders N Defects or Inherited Disease N Breast Problem N Gestational Diabetes N Hematologic disorders N Anesthesia Complications N History of STI N Deep Vein Thrombosis N Polycystic ovary syndrome N Anxiety Disorder Y Autoimmune disease N Arthritis N Polyps N Infertility N History of abnormal pap N Acid Reflux (GERD) Y Cancer N Varicosities N Stroke N Neurologic/Epilepsy N Endometriosis N High Cholesterol N Fibromyalgia N Headaches Y Kidney Disease N Heart Problems N Kidney or Bladder Problems N Thyroid Problems N GI Problems N Eating Disorder N Anemia N Art (IVF or FET) N Psychiatric Illness N Ovarian Cancer N Diabetes N Pulmonary (TB, Asthma) N Hepatitis/Liver Disease N No Past Medical History N Eczema N Urinary Tract Infection Y Abuse/Domestic Violence N Asthma Y Trauma/Violence N Depression/ depression Y Heart Disease N Pre-Eclampsia N Hypertension N Osteoporosis N Thrombophilias N Gynecological History Statement/Question Response Flow Heavy Date of Last Mammogram Date of LMP 02/26/2025 Was last menstrual period normal Y STIs/STDs N Duration of Flow (days) 4 Current Control Method IUD Are cycles usually normal Y Date of Last Colonoscopy Sexually Active? Y Menses Monthly Y Date of DEXA bone scan Age of first menstrual cycle 12 Date of Last Pap Smear Sexual Problems? N LMP Definite Obstetrics History GPAL:G 0 P 0 0 0 0 Type Value Living 0 Total 0 Past Encounters Encounter ID Performer Location Encounter Start Date Encounter Closed Date Diagnosis/Indication Diagnosis SNOMED-CT Code Diagnosis ICD10 Code Diagnosis IMO Codes Diagnosis Note [id number] ANGELINA CAIN NP [facility] [address] [address] 01/06/2025 11:50:43 01/06/2025 12:22:51 Subcutaneous contraceptive implant present 319980626 Z30.46 [id number] Patient tolerated procedure well. We discussed backup method of control if she becomes sexually active. Discussed that most women do not experience pain after removal, but if it occurs, OTC pain medication usually provide relief. She should call the provider if she develops pain, discharge, or swelling at the removal site, fever, or other concerns. Health Concerns Section Related Observation LastModified by Organization Detai ls LastModified Time None Recorded Concern Status LastModified by Organization Details LastModified Time None Recorded Payers Encounter Date Sequence Insurance Name Policy Number Policy Sherwood Covered Member ID Sherwood Member ID Guarantor Name 01/06/2025 1 [facility] [id number] Mason Salguero [id number] Mason Salguero Notes Date Note Type Note Provider Name and Address Organization Details Recorded Time 01/06/2025 text/html ROS as noted in the HPI 19 y/o female presents for Nexplanon removal.Patient states that she has been having irregular periods, hair loss and mood swings since having Nexplanon inserted.Patient states that she is not currently sexually active and wants to be off control for a while. ANGELINA CAIN, JOSUE [address], [place], [address], [facility] 01/06/2025 12:22:01 OBGyn Episode No OBEpisode recorded.
--- OUTSIDE RECORDS SUMMARY | 2025-03-31 07:47 | XMS_ITS | Patient Health Record ---
Author Organization [facility] Address [address] [place] [address] Care Team Providers Care Dispute Resolution Analyst Name Role Phone Rolanda Hyde Primary Care Provider ALLERGIES Allergen (clinical drug ingredient) Drug/Non Drug Allergy documented on EMR Reaction Allergy Type Onset Date Status Omnicef rash Drug Allergy Active Penicillin rash Drug Allergy Active REASON FOR REFERRAL No Information MEDICATIONS Medication SIG (Take, Route, Frequency, Duration) Notes Start Date End Date Status Pantoprazole Sodium 20 MG 1 tablet Orally daily in AM for 90 days Active Nexplanon 68 MG as directed 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 Nathan Active SOCIAL HISTORY Tobacco [...] W/U Status Risk SNOMED Code Notes Problem GERD (gastroesopha geal reflux disease) (K21.9) Active confirmed Gastroesophagea l reflux disease (359875122) Problem Childhood asthma (J45.909) Active confirmed Childhood asthm a (812418900) PLAN OF TREATMENT No Information Insurance Providers Payer Name Payer Address Payer Phone Subscriber Number Group Number Insured Name Patient Relationship to Insured Coverage Start Date Coverage End Date [employer] [facility] [address] [address] [place] [address] [id number] [phone] Mason Salguero Child - Insured has Financial Responsibility MEDICAL (GENERAL) HISTORY Medical History History ICD Code GERD (gastroesophageal reflux disease) K 21.9 Childhood asthma J45.909 Hospitalization History Reason Date(Month/Year) GERD management 2010
--- OUTSIDE RECORDS SUMMARY | 2025-03-31 07:47 | XMS_ITS | Continuity of Care Document ---
Author Organization [facility] [place] Address [address] [place] [place] [address] [place] [address] Care Team Providers Care Firer Automatic Stoker Name Role Phone KIARA THOMPSON Primary Care Provider [phone] Assessment No assessment recorded. Plan of Treatment Reminders Order Date Submit Date Provider Last Modified By Organization Details Last Modified Time Details Appointments MED CHECK 2024 10:30A M AYESHA VILLARREAL MD Not available Not available Not available Lab test, urine [address], [address], [place], [address], 03/29/2025 17:46:58 Referral None recorded. Procedures None recorded. Surgeries None recorded. Imaging None recorded. Medication Orders Kyleena 17.5 mcg/24 hr (up to 5 years) 19.5 mg intrauter ine device 2024 [address] [id number], [address], [place], [place], [id number], 03/29/2025 17:46:58 Patient TargetsNo targets recorded. Patient InstructionsNo instructions recorded. Reason for Referral None Reported. Results Created Date Observation Date Name Description Value Unit Range Abnormal Flag Note LastModifiedBy Organization Detail LastModifiedTime 03/29/2003/29/2025 pregn fabio test, urine HCG negati ve Not Available [facility] [address], [place], [address], 03/29/2025 17:45:09 Result Notes None recorded. Procedures Surgical History Date Name Laterality Status Provider Name and Address Organization Details Recorded Time 5 IUD Insertion completed AYESHA VILLARREAL MD [address], [place], [address], [facility] 03/29/2025 17:07:18 5 Nexplanon Removal completed ANGELINA CAIN NP [address], [place], [address], [facility] 01/06/2025 12:19:58 3 Control Implant Insertion completed RAYSHAWN Hernandez- [address], [place], [address], [facility] 09/14/2022 11:55:01 Imaging Results None recorded. Procedure Notes None recorded. Medical Equipment None Reported. Allergies Allergen ID Allergen Name Allergen Category Reaction Reaction Severity Criticality Documentation Date Start Date Code Code System Note Provider Name and Address Organization Details Recorded Time Omnicef medicatio n rash Not available Not available 09/14/2022 84006 RxNorm Kyara guidry, [facility] 3 10:06:40 Product containin g penicilli n (product) medicatio n Not available Not available Not available 09/14/2022 56812 8001 SNOMED Kyara guidry, [facility] 3 10:06:54 Medications Name Sig Start [...] and Address Organization Details Last Updated DateTime 03/29/2025 152.4 cm 27.5 kg/m2 88 % 90831.5 2 g 124/82 mm[Hg] Jami Lind [facility] 16:31:19 Social History Question Answer Notes LastModified by Organizat ion Details LastModified Time Tobacco Smoking Status Never Smoker Kyara guidry, [facility] 09/14/2022 10:08:38 If You Are , What Was Your Level Of Alcohol Consumption Prior To ? None [email or web address] Information not available 09/14/2022 Are You Blind Or Do You Have Difficulty Seeing? No ifqazilc92 Information n ot available 09/14/2022 What Is Your Level Of Caffeine Consumption? Heavy [email or web address] Information not available 09/14/2022 How Much Tobacco Do You Chew? None [email or web address] Information not available 09/14/2022 In The 14 Days Before Symptom Onset, Have You Had Close Contact With A Laboratory-confirm ed COVID-19 While That Case Was Ill? No Information n ot available 09/14/2022 In The 14 Days Before Symptom Onset, Have You Had Close Contact With A Person Who Is Under Investigation For COVID-19 While That Person Was Ill? No [email or web address] Information not available 09/14/2022 Have You Been To An Area Known To Be High Risk For COVID-19? No [email or web address] Information not available 09/14/2022 Are You Deaf Or Do You Have Serious Difficulty Hearing? No orqvtker72 Information not available 09/14/2022 What Type Of Diet Are You Following? REGULAR [email or web address] Information n ot available 09/14/2022 What Is The Highest Grade Or Level Of School You Have Completed Or The Highest Degree You Have Received? [id number] [email or web address] Information not available 01/06/2025 Are There Any Guns Present In Your Home? No [email or web address] Information not available 09/14/2022 Do You Use Protection During Sex? Usually ypzxukl45 Information not available 01/06/2025 Do You Use Your Seat Belt Or Car Seat Routinely? Yes aogzzduw36 Information not available 09/14/2022 Do You Have Smoke And Carbon Monoxide Detectors In Your Home? Yes [email or web address] Information not available 09/14/2022 How Much Tobacco Do You Smoke? No [email or web address] Information not available 09/14/2022 Do You Use Sunscreen Routinely? Yes aknudfze09 Information not available 09/14/2022 Has Tobacco Cessation Counseling Been Provided? No Information not available 09/14/2022 Have You Used IV Drugs? No [email or web address] Information not available 09/14/2022 Do You Have Difficulty Walking Or Climbing Stairs? No [email or web address] Information not available 09/14/2022 Sex: Unknown Functional Status Question Answer Note LastModified by Organizat ion Details LastModified Time Do you use any illicit or recreational drugs? No [email or web address] Information not available 09/14/2022 Do you or have you ever used any other forms of tobacco or nicotine? No Information not available 09/14/2022 What is your level of alcohol consumption? None [email or web address] Information not available 09/14/2022 Are you able to walk independently without assistance or assistive devices? YESWOREST arxcdgle55 Information not available 09/14/2022 Are you able to care for yourself independently? Yes [email or web address] Information not available 09/14/2022 Do you have difficulty dressing, bathing, grooming, or toileting? No [email or web address] Information not available 09/14/2022 What is your exercise level? Moderate [email or web address] Information not available 09/14/2022 Mental Status Question Answer Note LastModified by Organization D etails LastModified Time Do you feel stressed (tense, restless, nervous, or anxious, or unable to sleep at night)? [id number] [email or web address] Information not available 09/14/2022 Family History Relationship Description Onset Age of this Age Resolved Age Notes LastModified by Organization Details LastModified Time Mother Pre-eclampsi a [email or web address] Not available 09/14 10:06:40 Mother Heart disease [email or web address] Not available 09/14 10:06:40 Paternal Grandfather Heart disease [email or web address] Not available 09/14 10:06:40 Medical History Condition Response Other N Blood Transfusion N Dermatologic Disorders N Gestational Diabetes N Anxiety Disorder Y Autoimmune disease N Arthritis N Polyps N Infertility N Acid Reflux (GERD) Y Cancer N Varicosities N Stroke N Neurologic/Epilepsy N Fibromyalgia N Headaches Y Kidney Disease N Heart Problems N Kidney or Bladder Problems N Eating Disorder N Art (IVF or FET) N Hepatitis/Liver Disease N No Past Medical History N Urinary Tract Infection Y Asthma Y Trauma/Violence N Thrombophilias N Allergies (Food, seasonal, environmental ) Y Breast Cancer N Drug/Latex Allergies/Reactions N Lung Disease N Defects or Inherited Disease N Breast Problem N Hematologic disorders N Anesthesia Complications N History of STI N Deep Vein Thrombosis N Polycystic ovary syndrome N History of abnormal pap N Endometriosis N High Cholesterol N Thyroid Problems N GI Problems N Anemia N Psychiatric Illness N Ovarian Cancer N Diabetes N Pulmonary (TB, Asthma) N Eczema N Abuse/Domestic Violence N Depression/ depression Y Heart Disease N Pre-Eclampsia N Hypertension N Osteoporosis N Gynecological History Statement/Question Response Flow Heavy [...] ICD10 Code Diagnosis IMO Codes Diagnosis Note [id number] ANGELINA CAIN NP [facility] [address] [address] 03/24/2025 11:24:08 03/24/2025 11:57:36 Contraception care management 421217070 Z30.9 [id number] Effectiven ess, correct use, advantages /disadvant ages, common side effects, serious complicati ons, contra-ind ications/p recautions and return to fertility were reviewed for the following: Combined oral contracept lauren (pills/pat ch/ring), Progestero ne-only pills, Depo Provera injection, Nexplanon implant, Kyleena IUD, Mirena IUD, Paragard IUD, Condoms, Diaphragm, Spermicide s. Discussed the risks, benefits, and alternativ es to Kyleena IUD. Discussed insertion and removal process. Discussed bleeding profile. Questions answered. Will schedule insertion with menses. Avoid unprotecte d intercours e. [id number] AYESHA VILLARREAL MD [facility] [address] [address] 03/29/2025 16:01:33 03/30/2025 08:24:00 Insertion of intrauterine contraceptive device [id number] Z30.430 [id number] - KyleenaIUD placed without issue- due for removal 03/2030- rtc 4 weeks for string check Health Concerns Section Related Observation LastModified by Organization Detai ls LastModified Time None Recorded Concern Status LastModified by Organization Details LastModified Time None Recorded Payers Encounter Date Sequence Insurance Name Policy Number Policy Sherwood Covered Member ID Sherwood Member ID Guarantor Name 03/29/2025 1 [facility] [id number] Mason Salguero [id number] Mason Salguero Notes Date Note Type Note Provider Name a al Address Organization Details Recorded Time 03/29/2025 text/html ROS as noted in the HPI Patient presents for IUD insertion. AYESHA VILLARREAL MD [address], [place], [address], [facility] 03/29/2025 18:19:21 OBGyn Episode No OBEpisode recorded.
--- OUTSIDE RECORDS SUMMARY | 2025-03-31 07:47 | XMS_ITS | Data Portability ---
Author Organization [facility] Address [address] [place] [place] [address] [place] [address] Care Team Providers Care Wheel Loader Operator Name Role Phone KIARA THOMPSON Primary Care Provider [phone] Assessment No assessment recorded. Plan of Treatment Reminders Order Date Submit Date Provider Last Modified By Organization Details Last Modified Time Details Appointments MED CHECK 2024 10:30A M AYESHA VILLARREAL MD Not available Not available Not available Lab test, urine 2024 025 [email or web address] [facility], [address], [place], [address], 03/29/2025 17:46:58 urinalysi s, dipstick 2022 023 [email or web address] [facility], [address], [place], [address], 09/14/2022 10:15:37 CT + NG + TV, RNA, unspecifi ed specimen 2022 023 [facility] (Lab), [address], [place], [address], 09/17/2022 13:29:27 test, urine 2022 023 [email or web address] [address], [address], [place], [address], 09/14/2022 10:14:06 Referral None recorded. Procedures None recorded. Surgeries None recorded. Imaging None recorded. Medication Orders Kyleena 17.5 mcg/24 hr (up to 5 years) 19.5 mg intrauter ine device 2024 025 [email or web address] [id number], [address], [place], [place], [phone], 03/29/2025 17:46:58 Nexplanon 68 mg subdermal implant 2022 023 [email or web address] [id number], [address], [place], [place], [id number], 03/24/2025 11:33:57 Patient TargetsNo targets recorded. Patient InstructionsNo instructions recorded. Reason for Referral None Reported. Results Created Date Observation Date Name Description Value Unit Range Abnormal Flag Note LastModifiedBy Organization Detail LastModifiedTime 09/15/1909/14/2022 urina lysis , dipst ick Leukocytes normal Not Available Alba mercer [address], [place], [address], 09/14/2022 10:14:37 09/15/19 23 09/14/2022 urina lysis , dipst ick Nitrite normal Not Available [facility] [address], [place], [address], 09/14/2022 10:14:37 09/15/19 23 09/14/2022 urina lysis , dipst ick Urobilinogen normal Not Available Roel ruiz [address], [place], [address], 09/14/2022 10:14:37 09/15/19 23 09/14/2022 urina lysis , dipst ick Protein trace Not Available [facility] [address], [place], [address], 09/14/2022 10:14:37 09/15/19 23 09/14/2022 urina lysis , dipst ick pH 8 Not Available [facility] [address], [place], [address], 09/14/2022 10:14:37 09/15/19 23 09/14/2022 urina lysis , dipst ick Specific [facility] 1.020 Not Available [facility] [address], [place], [address], 09/14/2022 10:14:37 09/15/19 23 09/14/2022 urina lysis , dipst ick Ketone normal Not Available [facility] [address], [place], [address], 09/14/2022 10:14:37 09/15/19 23 09/14/2022 urina lysis , dipst ick Bilirubin normal Not Available [facility] [address], [place], [address], 09/14/2022 10:14:37 09/15/19 23 09/14/2022 urina lysis , dipst ick Glucose normal Not Available [facility] [address], [place], [address], 09/14/2022 10:14:37 09/15/19 23 09/14/2022 urina lysis , dipst ick Appearance normal Not Available [facility] [address], [place], [address], 09/14/2022 10:14:37 09/15/19 23 09/14/2022 urina lysis , dipst ick Color normal Not Available [facility] [address], [place], [address], 09/14/2022 10:14:37 09/15/19 23 09/14/2022 pregn fabio test, urine HCG negati ve Not Available [facility] [address], [place], [address], 09/14/2022 10:13:50 09/17/19 23 09/16/2022 CT/GC AND TRICH OMONA S VAGIN GABRIEL (RRNA ), URINE chlamydia trachomatis, PCR Negati ve negati ve Not Available [facility] (Lab) [address], [place], [address], 09/17/2022 13:29:27 09/17/19 23 09/16/2022 CT/GC AND TRICH OMONA S VAGIN GABRIEL (RRNA ), URINE neisseria gonorrhoeae, PCR Negati ve negati ve Not Available [facility] (Lab) [address], [place], [address], 09/17/2022 13:29:27 09/17/19 23 09/16/2022 CT/GC AND TRICH OMONA S VAGIN GABRIEL (RRNA ), URINE trichomonas vaginalis ribosomal RNA (rrna) Negati ve negati ve Not Available [facility] (Lab) [address], [place], [address], 09/17/2022 13:29:27 03/29/20 25 03/29/2025 pregn fabio test, urine HCG negati ve Not Available [facility] [address], [place], [address], 03/29/2025 17:45:09 Result Notes None recorded. Procedures Surgical History Date Name Laterality Status Provider Name and Address Organization Details Recorded Time 5 IUD Insertion completed AYESHA VILLARREAL MD [address], [place], [address], [facility] 03/29/2025 17:07:18 5 Nexplanon Removal completed ANGELINA CAIN NP [address], [place], [address], [facility] 01/06/2025 12:19:58 3 Control Implant Insertion completed Kaitlin Nathan [facility]- [address], [place], [address], [place] [facility] 09/14/2022 11:55:01 Imaging Results None recorded. Procedure Notes None recorded. Medical Equipment None Reported. Allergies Allergen ID Allergen Name Allergen Category Reaction Reaction Severity Criticality Documentation Date Start Date Code Code System Note Provider Name and Address Organization Details Recorded Time Omnicef medicatio n rash Not available Not available 09/14/2022 20356 RxNorm Kyara Marcanoazar guidry, [facility] 3 10:06:40 Product containin g penicilli n (product) medicatio n Not available Not available Not available 09/14/2022 43811 8001 SNOMED Kyara Marcanotz [facility], [facility] 10:06:54 Medications Name Sig Start Date Stop [...] Recorded Body height Body mass index (BMI) [Percentile] Per age and sex Body mass index (BMI) Body weight Systolic And Diastolic Provider Name and Address Organization Details Last Updated DateTime 09/14/2022 152.4 cm 89 % 26.6 kg/m2 96120.5 6 g 123/81 mm[Hg] Kyara Richter [facility] 3 10:06:15 Date Recorded Body height Body mass index (BMI) Body mass index (BMI) [Percentile] Per age and sex Body weight Systolic And Diastolic Provider Name and Address Organization Details Last Updated DateTime 01/06/2025 152.4 cm 26.7 kg/m2 86 % 98545.4 4 g 127/82 mm[Hg] [facility] 5 12:03:20 Date Recorded Body height Body mass index (BMI) Body mass index (BMI) [Percentile] Per age and sex Body weight Systolic And Diastolic Provider Name and Address Organization Details Last Updated DateTime 03/24/2025 152.4 cm 28 kg/m2 89 % 91325.1 5 g 130/72 mm[Hg] [facility] 5 11:33:10 Date Recorded Body height Body mass index (BMI) Body mass index (BMI) [Percentile] Per age and sex Body weight Systolic And Diastolic Provider Name and Address Organization Details Last Updated DateTime 03/29/2025 152.4 cm 27.5 kg/m2 88 % 09267.5 2 g 124/82 mm[Hg] Jami Lind [facility] 5 16:31:19 Social History Question Answer Notes LastModified by Organizat ion Details LastModified Time Tobacco Smoking Status Never Smoker Kyara Richter [facility] 09/14/2022 10:08:38 If You Are , What Was Your Level Of Alcohol Consumption Prior To ? None [email or web address] Information not available 09/14/2022 Are You Blind Or Do You Have Difficulty Seeing? No [email or web address] Information n ot available 09/14/2022 What Is Your Level Of Caffeine Consumption? Heavy [email or web address] Information not available 09/14/2022 How Much Tobacco Do You Chew? None [email or web address] Information not available 09/14/2022 In The 14 Days Before Symptom Onset, Have You Had Close Contact With A Laboratory-confirm ed COVID-19 While That Case Was Ill? No [email or web address] Information n ot available 09/14/2022 In The 14 Days Before Symptom Onset, Have You Had Close Contact With A Person Who Is Under Investigation For COVID-19 While That Person Was Ill? No [email or web address] Information not available 09/14/2022 Have You Been To An Area Known To Be High Risk For COVID-19? No Information not available 09/14/2022 Are You Deaf Or Do You Have Serious Difficulty Hearing? No [email or web address] Information not available 09/14/2022 What Type Of Diet Are You Following? REGULAR [email or web address] Information n ot available 09/14/2022 What Is The Highest Grade Or Level Of School You Have Completed Or The Highest Degree You Have Received? AV57653-8 [email or web address] Information not available 01/06/2025 Are There Any Guns Present In Your Home? No [email or web address] Information not available 09/14/2022 Do You Use Protection During Sex? Usually Information not available 01/06/2025 Do You Use Your Seat Belt Or Car Seat Routinely? Yes [email or web address] Information not available 09/14/2022 Do You Have Smoke And Carbon Monoxide Detectors In Your Home? Yes Information not available 09/14/2022 How Much Tobacco Do You Smoke? No [email or web address] Information not available 09/14/2022 Do You Use Sunscreen Routinely? Yes ubxxtzjo05 Information not available 09/14/2022 Has Tobacco Cessation Counseling Been Provided? No [email or web address] Information not available 09/14/2022 Have You Used IV Drugs? No ffoomxoy39 Information not available 09/14/2022 Do You Have Difficulty Walking Or Climbing Stairs? No hfxqgjra70 Information not available 09/14/2022 Sex: Unknown Functional Status Question Answer Note LastModified by Organizat ion Details LastModified Time Do you use any illicit or recreational drugs? No uvodrfuu31 Information not available 09/14/2022 Do you or have you ever used any other forms of tobacco or nicotine? No wojifzxt89 Information not available 09/14/2022 What is your level of alcohol consumption? None [email or web address] Information not available 09/14/2022 Are you able to walk independently without assistance or assistive devices? YESWOREST ameivcel80 Information not available 09/14/2022 Are you able to care for yourself independently? Yes [email or web address] Information not available 09/14/2022 Do you have difficulty dressing, bathing, grooming, or toileting? No stzkxnun61 Information not available 09/14/2022 What is your exercise level? Moderate vjvypbxb83 Information not available 09/14/2022 Mental Status Question Answer Note LastModified by Organization D etails LastModified Time Do you feel stressed (tense, restless, nervous, or anxious, or unable to sleep at night)? [id number] fbgroxst55 Information not available 09/14/2022 Family History Relationship Description Onset Age of this Age Resolved Age Notes LastModified by Organization Details LastModified Time Mother Pre-eclampsi a [email or web address] Not available 09/14 10:06:40 Mother Heart disease [email or web address] Not available 09/14 10:06:40 Paternal Grandfather Heart disease [email or web address] Not available 09/14 10:06:40 Medical History Condition [...] ICD10 Code Diagnosis IMO Codes Diagnosis Note [id number] Kaitlin Nathan [facility] [address] [address] 09/14/2022 09:33:05 09/16/2022 09:48:33 Contraception care management 645265814 Z30.9 Discussed all control options in depth and pt is interested in Nexplanon. Discussed all risks and benefits including irregular unschedule d bleeding. Pt verbalized understand ing and would like to proceed. She is aware that she needs to call us on the 1st day of her period to schedule placement. Opts for same day placement after reviewed LMP Time spent in visit is a total of 30 mins with at least 50% of visit consisting of counseling and review of plan of care. Urinary symptoms 6016974 08 R39.9 UPT neg Venereal d isease screening 552762239 Z11.3 Urine sent Implantati on of subcutaneous contraceptive 505393713 Z30.9 Patient is here currently on her menses. She was given all the r/b/a of placement of the Nexplanon device and has signed the consent. She is fully aware of all possible side effects of the device and has decided to move forward with placement. Insertion site was cleansed with betadine and 3cc lidocaine used for anesthesia . Device was placed in the left arm per usual fashion w/o complicati on and patient instructed to f/u in one month or earlier if there are any si/sx of infection or hypersensi tivity at the insertion site RTO x 3mos or prn med check [id number] ANGELINA CAIN, JOSUE [place] [address],[place] [address] 01/06/2025 11:50:43 01/06/2025 12:22:51 Subcutaneous contraceptive implant present 722953706 Z30.46 [id number] Patient tolerated procedure well. We discussed backup method of control if she becomes sexually active. Discussed that most women do not experience pain after removal, but if it occurs, OTC pain medication usually provide relief. She should call the provider if she develops pain, discharge, or swelling at the removal site, fever, or other concerns. [id number] Noe Bowman MD [facility] [address],[place] [address] 01/07/2025 12:09:28 01/07/2025 17:06:54 [id number] ANGELINA CAIN NP [place] [address],[place] [address] 03/24/2025 11:24:08 03/24/2025 11:57:36 Contraception care management 683526340 Z30.9 [id number] Effectiven ess, correct use, advantages /disadvant ages, [...] with menses. Avoid unprotecte d intercours e. [id number] AYESHA VILLARREAL MD [facility] [address],[place] [address] 03/29/2025 16:01:33 03/30/2025 08:24:00 Insertion of intrauterine contraceptive device 71936005 Z30.430 920430 - KyleenaIUD placed without issue- due for removal 03/2030- rtc 4 weeks for string check Health Concerns Section Related Observation LastModified by Organization Detai ls LastModified Time None Recorded Concern Status LastModified by Organization Details LastModified Time None Recorded Advance Directives Directive None Recorded Payers Insurance Date Sequence Insurance Name Policy Number Policy Sherwood Covered Member ID Sherwood Member ID Guarantor Name 01/04/2025 1 [facility] [employer] [facility] - [employer] (PPO) [id number] Mason Salguero [id number] Mason Salguero 03/29/2025 1 [facility] [id number] Mason Salguero [id number] Mason Salguero 02/17/2025 1 [facility] Mason Salguero [id number] Mason Salguero Notes Date Note Type Note Provider Name and Address Organization Details Recorded Time 09/14/2022 text/html Here today for contraception consultation. Health hx was reviewed & updated as reported. RAYSHAWN Hernandez- [address], [place], [address], [facility] 09/14/2022 11:56:28 01/06/2025 text/html ROS as noted in the HPI 19 y/o female presents for Nexplanon removal.Patient states that she has been having irregular periods, hair loss and mood swings since having Nexplanon inserted.Patient states that she is not currently sexually active and wants to be off control for a while. ANGELINA CAIN NP [address], [place], [address], [facility] 01/06/2025 12:22:01 03/24/2025 text/html 20 y/o female presents for control consult.Patient had Nexplanon removed 01/06/25 and has been having monthly cycles since then. ANGELINA CAIN NP [address], [place], [address], [facility] 03/24/2025 11:57:01 03/29/2025 text/html ROS as noted in the HPI Patient presents for IUD insertion. AYESHA VILLARREAL MD [address], [place], [address], [facility] 03/29/2025 18:19:21 OBGyn Episode No OBEpisode recorded.
--- OUTSIDE RECORDS SUMMARY | 2025-03-31 07:47 | XMS_ITS | Continuity of Care Document ---
Author Organization [facility] [place] Address [address] [place] [place] [address] [address] Care Team Providers Care Cleaning Technician Name Role Phone JAY MARKOSTARAN Primary Care Provider [phone] Assessment No assessment recorded. Plan of Treatment [...] AYESHA VILLARREAL MD [address], [place], [address], [facility] 03/29/2025 17:07:18 5 Nexplanon Removal completed ANGELINA CAIN NP [address], [place], [address], [facility] 01/06/2025 12:19:58 3 Control Implant Insertion completed Kaitlin Nathan JOSUE- [address], [place], [address], [facility] 09/14/2022 11:55:01 Imaging Results None recorded. Procedure Notes None recorded. Medical Equipment None Reported. Allergies Allergen ID Allergen Name Allergen Category Reaction Reaction Severity Criticality Documentation Date Start Date Code Code System Note Provider Name and Address Organization Details Recorded Time Omnicef medicatio n rash Not available Not available 09/14/2022 30682 RxNorm Kyara Marcanotz [facility] 3 10:06:40 Product containin g penicilli n (product) medicatio n Not available Not available Not available 09/14/2022 99250 8001 SNOMED Kyara Marcanotz [facility] 3 10:06:54 Medications Name Sig Start [...] Available Not Available Not Avai lable Vitals None Recorded Social History Question Answer Notes LastModified by Organizat ion Details LastModified Time Tobacco Smoking Status Never Smoker Kyara Marcanoazar guidry, [facility] 09/14/2022 10:08:38 If You Are , What Was Your Level Of Alcohol Consumption Prior To ? None Information not available 09/14/2022 Are You Blind Or Do You Have Difficulty Seeing? No [email or web address] Information n ot available 09/14/2022 What Is Your Level Of Caffeine Consumption? Heavy oxdiylvp97 Information not available 09/14/2022 How Much Tobacco Do You Chew? None yqkgahsn23 Information not available 09/14/2022 In The 14 Days Before Symptom Onset, Have You Had Close Contact With A Laboratory-confirm ed COVID-19 While That Case Was Ill? No spkzebpw92 Information n ot available 09/14/2022 In The 14 Days Before Symptom Onset, Have You Had Close Contact With A Person Who Is Under Investigation For COVID-19 While That Person Was Ill? No [email or web address] Information not available 09/14/2022 Have You Been To An Area Known To Be High Risk For COVID-19? No uhrmhokf52 Information not available 09/14/2022 Are You Deaf Or Do You Have Serious Difficulty Hearing? No apsbqbgj61 Information not available 09/14/2022 What Type Of Diet Are You Following? REGULAR crjdfomq58 Information n ot available 09/14/2022 What Is The Highest Grade Or Level Of School You Have Completed Or The Highest Degree You Have Received? [id number] dcuydnz09 Information not available 01/06/2025 Are There Any Guns Present In Your Home? No [email or web address] Information not available 09/14/2022 Do You Use Protection During Sex? Usually qwznybl19 Information not available 01/06/2025 Do You Use Your Seat Belt Or Car Seat Routinely? Yes zbeqiqiw63 Information not available 09/14/2022 Do You Have Smoke And Carbon Monoxide Detectors In Your Home? Yes vbrjtyhq07 Information not available 09/14/2022 How Much Tobacco Do You Smoke? No znnghwny33 Information not available 09/14/2022 Do You Use Sunscreen Routinely? Yes zinkauee64 Information not available 09/14/2022 Has Tobacco Cessation Counseling Been Provided? No rpjximsu23 Information not available 09/14/2022 Have You Used IV Drugs? No Information not available 09/14/2022 Do You Have Difficulty Walking Or Climbing Stairs? No lbqbvfyk05 Information not available 09/14/2022 Sex: Unknown Functional Status Question Answer Note LastModified by Organizat ion Details LastModified Time Do you use any illicit or recreational drugs? No pslkuwpw03 Information not available 09/14/2022 Do you or have you ever used any other forms of tobacco or nicotine? No jtfysamz41 Information not available 09/14/2022 What is your level of alcohol consumption? None Information not available 09/14/2022 Are you able to walk independently without assistance or assistive devices? YESWOREST kosehyob93 Information not available 09/14/2022 Are you able to care for yourself independently? Yes Information not available 09/14/2022 Do you have difficulty dressing, bathing, grooming, or toileting? No yyixckpq71 Information not available 09/14/2022 What is your exercise level? Moderate aafkrkny19 Information not available 09/14/2022 Mental Status Question Answer Note LastModified by Organization D etails LastModified Time Do you feel stressed (tense, restless, nervous, or anxious, or unable to sleep at night)? [id number] [email or web address] Information not available 09/14/2022 Family History Relationship Description Onset Age of this Age Resolved Age Notes LastModified by Organization Details LastModified Time Mother Pre-eclampsi a [email or web address] Not available 09/14 10:06:40 Mother Heart disease yxqpwxsr24 Not available 09/14 10:06:40 Paternal Grandfather Heart disease [email or web address] Not available 09/14 10:06:40 Medical History Condition [...] ICD10 Code Diagnosis IMO Codes Diagnosis Note [id number] ANGELINA CAIN NP [place] [address] [address] 01/06/2025 11:50:43 01/06/2025 12:22:51 Subcutaneous contraceptive implant present 299055339 Z30.46 [id number] Patient tolerated procedure well. We discussed backup method of control if she becomes sexually active. Discussed that most women do not experience pain after removal, but if it occurs, OTC pain medication usually provide relief. She should call the provider if she develops pain, discharge, or swelling at the removal site, fever, or other concerns. [id number] Noe Bowman MD [place] [address] [address] 01/07/2025 12:09:28 01/07/2025 17:06:54 Health Concerns Section Related Observation LastModified by Organization Detai ls LastModified Time None Recorded Concern Status LastModified by Organization Details LastModified Time None Recorded Payers Encounter Date Sequence Insurance Name Policy Number Policy Sherwood Covered Member ID Sherwood Member ID Guarantor Name 01/07/2025 1 [facility] [id number] Mason Salguero [id number] Mason Salguero OBGyn Episode No OBEpisode recorded.
[2025-03-31 07:48] VITALS: BP 126/68; PULSE 93; RESP 20; TEMP 37.2; O2SAT 100
[2025-03-31] MEDS: IBUPROFEN 400 MG TABLET 800 MG PO (07:59)
[2025-03-31 08:00] VITALS: PULSE 110; RESP 20; O2SAT 100
[2025-03-31] MEDS: dexAMETHasone SOD PHOS INJ 10 MG/ML 1 ML VIAL IM (08:10)
[2025-03-31 08:12] LABS: BEDSIDEPREGUCG Negative (Negative)
[2025-03-31 08:23] LABS: Strep Group A RT-PCR NOT DETECTED (Negative)
[2025-03-31 08:52] LABS: Influenza A QL RT-PCR Negative (Negative); Influenza B QL RT-PCR Negative (Negative); SARS-CoV-2 RNA PCR Negative (Negative)
[2025-03-31 09:10] LABS: Negative Monotest Control Negative (Negative); Positive Monotest Control Positive (Positive)
--- NOTE | 2025-03-31 09:27 | ED.GENADULT ---
HPI - General Adult General Chief complaint: Upper Respiratory Infection Stated complaint: sore throat Time Seen by Provider: 03/31/25 07:49 History of Present Illness HPI narrative: This is a 20-year-old female presenting with sore throat. Symptoms started last night. She has pain on swallowing. No fevers. No nausea vomiting diarrhea. She is able handle own secretions. Related Data Home Medications ?Medication ?Instructions ?Recorded ?Confirmed ?Last Taken ?Type etonogestrel 68 mg subdermal 1 implant subdermal ONCE 11/03/23 03/02/24 Unknown History implant (Nexplanon) pantoprazole 20 mg tablet,delayed 20 mg PO QAM 11/03/23 03/02/24 11/09/23 09:00 History release Allergies Allergy/AdvReac Type Severity Reaction Status Date / Time cefdinir Allergy Severe Swelling Verified 03/31/25 07:45 of Lip/Tongue/Throat Penicillins Allergy Severe Swelling Verified 03/31/25 07:45 of Lip/Tongue/Throat PMFSH Past Medical History Medical History GERD (gastroesophageal reflux disease) Epigastric pain Nausea & vomiting Social History Social History Smoking status: Never smoker Alcohol intake: current Substance use: never Substance use type: does not use Living arrangements: with family Spiritual care concerns: No Exam Narrative: APPEARANCE: No apparent distress. Head: Mild erythema posterior oropharynx EYES: EOMI, NOSE: Atraumatic NECK: Trachea midline RESPIRATORY: No increased rate of breathing clear to auscultation CARDIOVASCULAR: RRR, ABDOMINAL: Non-distended MUSCULOSKELETAl: No obvious deformities NEURO: Alert. Moving 4/4 extremities SKIN:: Warm, dry. Normal color PSYCHIATRIC: Normal affect Course Vital Signs Vital signs: Vital Signs Temperature 98.9 F 03/31/25 07:48 Pulse Rate 93 03/31/25 07:48 Respiratory Rate 20 03/31/25 07:48 Blood Pressure 126/68 03/31/25 07:48 Pulse Oximetry 100 03/31/25 07:48 Oxygen Delivery Room Air 03/31/25 07:48 Temperature 98.9 F 03/31/25 07:48 Pulse Rate 110 H 03/31/25 08:00 Respiratory Rate 20 03/31/25 08:00 Blood Pressure 126/68 03/31/25 07:48 Pulse Oximetry 100 03/31/25 08:00 Oxygen Delivery Room Air 03/31/25 08:00 Medical Decision Making MDM Narrative Medical decision making narrative: -Course: 20-year-old female presenting with pharyngitis. Strep COVID flu and mono were negative. Patient treated dexamethasone ibuprofen. Educated on expected course of illness. Given return precautions. Medical diagnosis-viral pharyngitis -DDX includes but is not limited to: Viral pharyngitis, strep, mono Vital Signs Vital Signs: Vital Signs Temperature 98.9 F 03/31/25 07:48 Pulse Rate 93 03/31/25 07:48 Respiratory Rate 20 03/31/25 07:48 Blood Pressure 126/68 03/31/25 07:48 Pulse Oximetry 100 03/31/25 07:48 Oxygen Delivery Room Air 03/31/25 07:48 Temperature 98.9 F 03/31/25 07:48 Pulse Rate 110 H 03/31/25 08:00 Respiratory Rate 20 03/31/25 08:00 Blood Pressure 126/68 03/31/25 07:48 Pulse Oximetry 100 03/31/25 08:00 Oxygen Delivery Room Air 03/31/25 08:00 Lab Data Labs: Lab Results 03/31/25 03/31/25 03/31/25 Range/Units 07:56 08:02 08:09 POC Urine HCG, Qual Negative (Negative) Monoscreen (Negative) Influenza A (RT-PCR) Negative (Negative) Influenza B (RT-PCR) Negative (Negative) SARS-CoV-2 RNA (RT-PCR) Negative (Negative) Group A Strep (PCR) Not detected (Negative) 03/31/25 Range/Units 08:44 POC Urine HCG, Qual (Negative) Monoscreen Negative (Negative) Influenza A (RT-PCR) (Negative) Influenza B (RT-PCR) (Negative) SARS-CoV-2 RNA (RT-PCR) (Negative) Group A Strep (PCR) (Negative) Discharge Plan Discharge Clinical Impression: Pharyngitis Patient Disposition: Home Condition: Stable Instructions: Antibiotic Form, Pharyngitis (ED) Additional Instructions: You were seen in the ED for a sore throat. This is likely a viral illness. Please take Motrin and Tylenol as needed for your symptoms. If you develop unilateral throat pain, muffled voice or inability to swallow your secretions please return to the ED for re-evaluation. Patient Language: [place] Prescriptions: No Action pantoprazole 20 mg tablet,delayed release (DR/EC) 20 mg PO QAM Nexplanon 68 mg implant 1 implant subdermal ONCE Rx Instructions: as a single dose Follow-up/Referrals: PHYSICIAN NOT ON STAFF,NONSTAFF [Primary Care Provider]
[2025-03-31 09:47] VITALS: BP 128/74; PULSE 72; RESP 18; O2SAT 100
== END 2025-03-31 09:41 | disposition home or self-care (01) ==
PROVIDERS: Emergency Provider Emergency Medicine
DX: J02.9 Acute pharyngitis, unspecified (principal); K21.9 Gastro-esophageal reflux disease without esophagitis; Z20.822 Contact with and (suspected) exposure to COVID-19
CPT/HCPCS: 36415; 81025; 86308; 87636; 87651; 96372; 99283; A9270; J1100